=== PATIENT | female | born 1985 | race African-American/Black ===

== ENCOUNTER 2019-01-30 07:24 | Emergency (ER) | payer MEDICARE ==
[~2019-01-30] VITALS: Ht 160 cm; Wt 88.0 kg
--- OUTSIDE RECORDS SUMMARY | 2019-01-30 07:26 | XMS REPORT | Clinical Summary ---
Author Author [facility] [employer] [place] [employer] Address Unknown Phone Unavailable Care Team Providers Care Optical Engineering Manager Name Role Phone Asked, No Pcp PCP Unavailable Allergies No Known Allergies Medications End Date Status Medication Sig Dispensed Refills Start Date 09/03/2018 amoxicillin-pot Take 1 tablet 14 tablet 0 clavulanate (AUGMENTIN) by mouth 9 875-125 mg per tablet every 12 (twelve) hours for 7 days. 11/29/2018 fluconazole (DIFLUCAN) Take 1 tablet 21 tablet 0 200 MG tablet (200 mg 9 total) by mouth daily for 21 days. 01/03/2019 traMADol (ULTRAM) 50 mg Take 1 tablet 20 tablet 0 tablet (50 mg total) 9 by mouth every 6 (six) hours as needed for moderate pain or severe pain for up to 7 days. 01/20/2019 acetaminophen-codeine Take 1-2 20 tablet 0 (TYLENOL WITH CODEINE #3) tablets by 9 300-30 mg per tablet mouth every 6 (six) hours as needed for moderate pain for up to 5 days. Active Problems Not on file Encounters Care Team Description Date Type Specialty Roberto, Jw Gonzalez Jr., MD Systemic lupus erythematosus, unspecified SLE type, unspecified organ involvement status (HCC) (Primary Dx); Total body pain 01/15/2019 Emergency Emergency Medicine SmithRodriguez MD Lupus erythematosus, unspecified form (Primary Dx) 12/27/2018 Emergency Emergency Medicine 12/27/2018 Travel Jerome Hernandez DO Esophageal candidiasis (HCC) (Primary Dx) 11/08/2018 Emergency Emergency Medicine 11/08/2018 Travel Francisco Campos MD Right acute otitis media (Primary Dx) 08/27/2018 Emergency Emergency Medicine after 01/29/2018 Social History Date Tobacco Use Types Packs/Day Years Used Current Some Day Smoker Smokeless Tobacco: Never Used Drinks/Week oz/Week Comments Alcohol Use Never Alcohol Habits Answer Date Recorded How often do you have a drink containing alcohol? Never 12/27/2018 How many drinks containing alcohol do you have on Not asked a typical day when you are drinking? How often do you have six or more drinks on one Not asked occasion? Sex Assigned at Date Recorded Not on file Industry Job Start Date Occupation Not on file Not on file Not on file Travel End Travel History Travel Start No recent travel history available. Last Filed Vital Signs Reading Time Taken Comments Vital Sign 133/75 01/15/2019 3:40 AM CDT Blood Pressure 80 01/15/2019 3:40 AM CDT Pulse 36.9 C (98.5 F) 01/15/2019 3:40 AM CDT Temperature 18 01/15/2019 3:40 AM CDT Respiratory Rate 98% 01/15/2019 3:40 AM CDT Oxygen Saturation - - Inhaled Oxygen Concentration 86.2 kg (190 lb) 01/15/2019 3:40 AM CDT Weight 160 cm (5' 3") 01/15/2019 3:40 AM CDT Height 33.66 01/15/2019 3:40 AM CDT Body Mass Index Plan of Treatment Not on file Results Not on fileafter 01/29/2018 Insurance Type Payer Benefit Subscriber ID Effective Phone Address Plan / Dates Group Medicare MEDICARE MEDICARE xxxxxxxxxxx 2018-P [place], PART A AND resent [place] B Medicaid MEDICAID MEDICAID xxxxxxxxx 2018-P resent Advance Directives For more information, please contact: [phone] Patient Video Coordinator Explanation Type Date Recorded Advance Directives, Living Will and Medical Power of Marketing Sales Consultant
--- OUTSIDE RECORDS SUMMARY | 2019-01-30 07:27 | XMS REPORT ---
Author [facility] Address Unknown Phone Unavailable Care Team Providers Care Aviation Maintenance Technician Name Role Phone Unavailable Unavailable Payers Payer Name Policy Type Policy Number Effective Date Expiration Date Problems This patient has no known problems. Allergies, Adverse Reactions, Alerts Allergy Name Allergy Type Status Severity Reaction(s) Onset Date Inactive Date Treating Clinician Comments No Known Allergies DA Active U 2018-10-29 00:00:00 No Known Allergies DA Active U 2016-07-05 00:00:00 Medications This patient has no known medications. Encounters Start Date/Time End Date/Time Encounter Type Admission Type Attending [facility] Facility Care Department Encounter ID 2019-01-03 13:59:00 2019-01-03 13:59:00 Emergency E [facility] [id number] 2018-12-27 04:17:00 2018-12-27 04:17:00 Emergency E [facility] [id number] 2018-11-05 04:38:00 2018-11-05 04:38:00 Emergency E [facility] [id number] 2017-04-09 10:16:12 2017-04-09 10:16:12 Outpatient [facility] [id number] 2017-04-09 00:00:00 2017-04-09 00:00:00 Outpatient [facility] [id number] 2017-03-27 00:00:00 2017-03-27 00:00:00 Outpatient [facility] [id number] 2017-03-18 00:00:00 2017-03-18 00:00:00 Outpatient [facility] [id number] 2017-02-27 07:51:35 2017-02-27 07:51:35 Outpatient [facility] [id number] 2017-01-29 14:32:48 2017-01-29 14:32:48 Outpatient [facility] [id number] 2016-12-17 09:26:37 2016-12-17 09:26:37 Outpatient [facility] [id number] 2016-12-03 08:19:18 2016-12-03 08:19:18 Outpatient [facility] [id number] 2016-07-31 12:25:10 2016-07-31 12:25:10 Outpatient [facility] [id number] Results Test Description Test Time Test Comments Text Results Atomic Results Result Comments CBC W/AUTO DIFF 2019-01-22 08:55:00 WHITE BLOOD CELL (test code=WBC) 2.3 K/mm3 6.6-12.1 RESULTS CALLED TO WILFRIDO DUMONT BACK & CONFIRMED? LANCE NavarroLAB.KG 01/22/19 0806.Results verified by repeat analysis RED BLOOD CELL (test code=RBC) 4.23 M/mm3 3.45-5.01 HEMOGLOBIN (test code=HGB) 12.4 g/dL 10.7-13.9 HEMATOCRIT (test code=HCT) 37.8 % 32.1-42.1 MEAN CELL VOLUME (test code=MCV) 89 fL 84.1-94.8 MEAN CELL HGB (test code=MCH) 29.3 pg 27-35 MEAN CELL HGB CONCETRATION (test code=MCHC) 32.8 gm/dL 32.2-34.1 RED CELL DISTRIBUTION WIDTH (test code=RDW) 14.6 % 12.4-16.5 PLATELET COUNT (test code=PLT) 153 K/mm3 133-385 MEAN PLATELET VOLUME (test code=MPV) 10.3 fl 9.1-12.7 MANUAL DIFF REQUIRED (test code=MDIFF) YES RBC MORPHOLOGY REQUIRED (test code=RBCM) NORMAL NORMAL PLATELET MORPHOLOGY REQUIRED (test code=PLTMR) ABNORMAL NORMAL WBC [id number] 08:55:00* Test Item Value Reference Range Comments TOTAL CELLS COUNTED (test code=TCC) 100 #CELLS SEGMENTED NEUTROPHILS (test code=SEG) 64 % 56.5-79.4 BAND NEUTROPHIL (test code=BAND) 4 % 0-5 LYMPHOCYTE (test code=LYMPH) 18 % 20-40 MONOCYTE (test code=MON) 10 % 0-8 EOSINOPHIL (test code=EOS) 4 % 0-4 PLATELET MORPHOLOGY (test code=PLTMORPH) PLATELET CLUMPS NORMAL CBC W/AUTO [id number] 08:54:00* Test Item Value Reference Range Comments WHITE BLOOD CELL (test code=WBC) 2.3 K/mm3 6.6-12.1 RESULTS CALLED TO WILFRIDO DUMONT BACK & CONFIRMED? LANCE PanasasLAB.KG 01/22/19805.Results verified by repeat analysis RED BLOOD CELL (test code=RBC) 4.23 M/mm3 3.45-5.01 HEMOGLOBIN (test code=HGB) 12.4 g/dL 10.7-13.9 HEMATOCRIT (test code=HCT) 37.8 % 32.1-42.1 MEAN CELL VOLUME (test code=MCV) 89 fL 84.1-94.8 MEAN CELL HGB (test code=MCH) 29.3 pg 27-35 MEAN CELL HGB CONCETRATION (test code=MCHC) 32.8 gm/dL 32.2-34.1 RED CELL DISTRIBUTION WIDTH (test code=RDW) 14.6 % 12.4-16.5 PLATELET COUNT (test code=PLT) 153 K/mm3 133-385 MEAN PLATELET VOLUME (test code=MPV) 10.3 fl 9.1-12.7 MANUAL DIFF REQUIRED (test code=MDIFF) YES RBC MORPHOLOGY REQUIRED (test code=RBCM) NORMAL PLATELET MORPHOLOGY REQUIRED (test code=PLTMR) NORMAL WBC [id number] 08:54:00* Test Item Value Reference Range Comments SEGMENTED NEUTROPHILS (test code=SEG) % 56.5-79.4 LYMPHOCYTE (test code=LYMPH) % 20-40 CBC W/AUTO [id number] 08:54:00* Test Item Value Reference Range Comments WHITE BLOOD CELL (test code=WBC) 2.3 K/mm3 6.6-12.1 RESULTS CALLED TO WILFRIDO DUMONT BACK & CONFIRMED? LANCE PanasasLAB.KG 01/22/19805.Results verified by repeat analysis RED BLOOD CELL (test code=RBC) 4.23 M/mm3 3.45-5.01 HEMOGLOBIN (test code=HGB) 12.4 g/dL 10.7-13.9 HEMATOCRIT (test code=HCT) 37.8 % 32.1-42.1 MEAN CELL VOLUME (test code=MCV) 89 fL 84.1-94.8 MEAN CELL HGB (test code=MCH) 29.3 pg 27-35 MEAN CELL HGB CONCETRATION (test code=MCHC) 32.8 gm/dL 32.2-34.1 RED CELL DISTRIBUTION WIDTH (test code=RDW) 14.6 % 12.4-16.5 PLATELET COUNT (test code=PLT) 153 K/mm3 133-385 MEAN PLATELET VOLUME (test code=MPV) 10.3 fl 9.1-12.7 MANUAL DIFF REQUIRED (test code=MDIFF) YES RBC MORPHOLOGY REQUIRED (test code=RBCM) NORMAL PLATELET MORPHOLOGY REQUIRED (test code=PLTMR) NORMAL WBC [id number] 08:54:00* Test Item Value Reference Range Comments SEGMENTED NEUTROPHILS (test code=SEG) % 56.5-79.4 LYMPHOCYTE (test code=LYMPH) % 20-40 HCG [id number] 08:21:00* Test Item Value Reference Range Comments HCG SERUM (test code=HCG) <1 INTERPRETATION:VALUES BETWEEN 15-20 milliInternational units/mL NEED TO BERETESTED WITHIN 48 HOURS. All units for these ranges are in milliInternationalunits/mL0-1 WK AFTER CONCEPTION 0-50 1-2 WKS AFTER CONCEPTION 40-3002-3 WKS AFTER CONCEPTION 100-1,0003-4 WKS AFTER CONCEPTION 500-6,0001-2 MONTHS AFTER CONCEPTION 5,000-200,0002-3 MONTHS AFTER CONCEPTION 10,000-100,0002ND TRIMESTER 3,000-50,0003RD TRIMESTER 1,000-50,000 SPECIMENS WITH AN HCG LEVEL FROM 0-6 milliInternationalunits/mL SHOULD BE CONSIDERED NEGATIVE COMPREHENSIVE METABOLIC [id number] 08:14:00* Test Item Value Reference Range Comments SODIUM (test code=NA) 145 mEq/L 135-145 POTASSIUM (test code=K) 3.4 mEq/L 3.5-5.0 CHLORIDE (test code=CL) 110 mEq/L 100-115 CARBON DIOXIDE (test code=CO2) 23 mEq/L 22-31 ANION GAP (test code=GAP) 15.30 10-20 GLUCOSE (test code=GLU) 102 mg/dL 65-110 BLOOD UREA NITROGEN (test code=BUN) 14 mg/dL 7-18 GLOMERULAR FILTRATION RATE (test code=GFR) 93 ml/min >60 CREATININE (test code=CREAT) 0.8 mg/dL 0.5-1.0 TOTAL PROTEIN (test code=PROT) 7.7 gm/dL 6.3-8.2 ALBUMIN (test code=ALB) 2.7 gm/dL 3.4-4.8 CALCIUM (test code=CA) 8.1 mg/dL 8.4-10.2 BILIRUBIN TOTAL (test code=BILT) 0.3 mg/dL 0.2-1.0 SGOT/AST (test code=AST) 37 units/L 15-37 SGPT/ALT (test code=ALT) 9 units/L 12-78 ALKALINE PHOSPHATASE TOTAL (test code=ALKP) 130 units/L 46-116 CBC W/AUTO [id number] 08:06:00* Test Item Value Reference Range Comments WHITE BLOOD CELL (test code=WBC) 2.3 K/mm3 6.6-12.1 RESULTS CALLED TO WILFRIDO DUMONT BACK & CONFIRMED? YBY F.LAB.KG 01/22/19 0806.Results verified by repeat analysis RED BLOOD CELL (test code=RBC) 4.23 M/mm3 3.45-5.01 HEMOGLOBIN (test code=HGB) 12.4 g/dL 10.7-13.9 HEMATOCRIT (test code=HCT) 37.8 % 32.1-42.1 MEAN CELL VOLUME (test code=MCV) 89 fL 84.1-94.8 MEAN CELL HGB (test code=MCH) 29.3 pg 27-35 MEAN CELL HGB CONCETRATION (test code=MCHC) 32.8 gm/dL 32.2-34.1 RED CELL DISTRIBUTION WIDTH (test code=RDW) 14.6 % 12.4-16.5 PLATELET COUNT (test code=PLT) 153 K/mm3 133-385 MEAN PLATELET VOLUME (test code=MPV) 10.3 fl 9.1-12.7 RBC MORPHOLOGY REQUIRED (test code=RBCM) NORMAL PLATELET MORPHOLOGY REQUIRED (test code=PLTMR) NORMAL LACTIC ACID [id number] 17:10:00* Test Item Value Reference Range Comments LACTIC ACID POC (test code=LACTP) 1.13 MMOL/L 0.90-1.70 UA RFLX MICR CULT IF [id number] 16:44:00* Test Item Value Reference Range Comments UA COLOR (test code=COLU) YELLOW discript YEL/STRAW UA APPEARANCE (test code=APPU) CLEAR discript CLEAR UA GLUCOSE DIPSTICK (test code=DGLUU) NEGATIVE mg/dL NEG UA BILIRUBIN DIPSTICK (test code=BILU) NEGATIVE mg/dL NEG UA KETONE DIPSTICK (test code=KETU) NEGATIVE mg/dL NEG UA SPECIFIC GRAVITY (test code=SGU) 1.015 SG 1.005-1.030 UA BLOOD DIPSTICK (test code=JORDY) NEGATIVE mg/DL NEG UA PH DIPSTICK (test code=RICHA) 7.0 pH UNITS 5.0-7.0 UA PROTEIN DIPSTICK (test code=PROU) 1+ mg/dL NEG UA UROBILINIOGEN DIPSTICK (test code=URO) 1.0 mg/dL <2.0 UA NITRITE DIPSTICK (test code=ISHAAN) NEGATIVE SCREEN NEG UA LEUKOCYTE ESTERASE DIPSTICK (test code=LEUU) NEGATIVE Leuk/mcL NEGATIVE UA WBC (test code=WBCU) NONE SEEN #WBC/HPF 0-3 UA RBC (test code=RBCU) NONE SEEN #RBC/HPF 0-3 UA BACTERIA (test code=BACU) NONE SEEN /HPF NONE-TRACE UA SQUAMOUS CELLS (test code=SQU) NONE SEEN /HPF NONE UA CULTURE NEEDED? (test code=UACULT) NO, WBC<10 Criteria Culture CHK SOURCE OF URINE: CLEAN CATCHIndication for culture: Sev. Sepsis-no other src UA RFLX MICR CULT IF [id number] 16:37:00* Test Item Value Reference Range Comments UA COLOR (test code=COLU) YELLOW discript YEL/STRAW UA APPEARANCE (test code=APPU) CLEAR discript CLEAR UA GLUCOSE DIPSTICK (test code=DGLUU) NEGATIVE mg/dL NEG UA BILIRUBIN DIPSTICK (test code=BILU) NEGATIVE mg/dL NEG UA KETONE DIPSTICK (test code=KETU) NEGATIVE mg/dL NEG UA SPECIFIC GRAVITY (test code=SGU) 1.015 SG 1.005-1.030 UA BLOOD DIPSTICK (test code=JORDY) NEGATIVE mg/DL NEG UA PH DIPSTICK (test code=RICHA) 7.0 pH UNITS 5.0-7.0 UA PROTEIN DIPSTICK (test code=PROU) 1+ mg/dL NEG UA UROBILINIOGEN DIPSTICK (test code=URO) 1.0 mg/dL <2.0 UA NITRITE DIPSTICK (test code=ISHAAN) NEGATIVE SCREEN NEG UA LEUKOCYTE ESTERASE DIPSTICK (test code=LEUU) NEGATIVE Leuk/mcL NEGATIVE UA CULTURE NEEDED? (test code=UACULT) NO, WBC<10 Criteria Culture CHK SOURCE OF URINE: CLEAN CATCHIndication for culture: Sev. Sepsis-no other src UA RFLX MICR CULT IF [id number] 16:36:00* Test Item Value Reference Range Comments UA COLOR (test code=COLU) YELLOW discript YEL/STRAW UA APPEARANCE (test code=APPU) CLEAR discript CLEAR UA GLUCOSE DIPSTICK (test code=DGLUU) NEGATIVE mg/dL NEG UA BILIRUBIN DIPSTICK (test code=BILU) NEGATIVE mg/dL NEG UA KETONE DIPSTICK (test code=KETU) NEGATIVE mg/dL NEG UA SPECIFIC GRAVITY (test code=SGU) 1.015 SG 1.005-1.030 UA BLOOD DIPSTICK (test code=JORDY) NEGATIVE mg/DL NEG UA PH DIPSTICK (test code=RICHA) 7.0 pH UNITS 5.0-7.0 UA PROTEIN DIPSTICK (test code=PROU) 1+ mg/dL NEG UA UROBILINIOGEN DIPSTICK (test code=URO) 1.0 mg/dL <2.0 UA NITRITE DIPSTICK (test code=ISHAAN) NEGATIVE SCREEN NEG UA LEUKOCYTE ESTERASE DIPSTICK (test code=LEUU) NEGATIVE Leuk/mcL NEGATIVE UA CULTURE NEEDED? (test code=UACULT) Criteria Culture CHK SOURCE OF URINE: CLEAN CATCHIndication for culture: Sev. Sepsis-no other src CBC W/AUTO [id number] 16:19:00* Test Item Value Reference Range Comments WHITE BLOOD CELL (test code=WBC) 3.5 K/mm3 3.5-11.0 RED BLOOD CELL (test code=RBC) 4.23 M/mm3 4.70-6.10 HEMOGLOBIN (test code=HGB) 12.5 G/DL 10.4-14.9 HEMATOCRIT (test code=HCT) 37.3 % 31.5-44.1 MEAN CELL VOLUME (test code=MCV) 88.2 Fl 84.5-98.6 MEAN CELL HGB (test code=MCH) 29.6 pg 27.0-34.2 MEAN CELL HGB CONCETRATION (test code=MCHC) 33.5 G/DL 31.5-34.0 RED CELL DISTRIBUTION WIDTH (test code=RDW) 15.3 SD 11.5-14.5 PLATELET COUNT (test code=PLT) 242.0 K/mm3 150-450 MEAN PLATELET VOLUME (test code=MPV) 10.60 fL 7.0-10.5 NEUTROPHIL % (test code=NT%) 68.9 % 40-76 LYMPHOCYTE % (test code=LY%) 14.0 % 20.5-51.1 MONOCYTE % (test code=MO%) 12.8 % 1.7-9.3 EOSINOPHIL % (test code=EO%) 4.3 % 0.0-6.0 BASOPHIL % (test code=BA%) 0.0 % 0.0-2.0 NEUTROPHIL # (test code=NT#) 2.42 K/mm3 1.8-7.6 LYMPHOCYTE # (test code=LY#) 0.5 K/mm3 0.6-3.2 MONOCYTE # (test code=MO#) 0.5 K/mm3 0.3-1.1 EOSINOPHIL # (test code=EO#) 0.2 K/mm3 0.0-0.4 BASOPHIL # (test code=BA#) 0.0 K/mm3 0.0-0.1 MANUAL DIFF REQUIRED (test code=MDIFF) NO DIFF/SCN CRITERIA SLIDE REVIEW CONSISTANT WITH AUTO DIFFERENTIAL. TROPONIN I [id number] 15:59:00* Test Item Value Reference Range Comments TROPONIN I RAPID (test code=TROPIRAP) 0.00 ng/mL 0.00-0.08 - The use of serial sampling and testing protocol is a recommended practice- An elevated troponin level alone is often not sufficient for diagnosis of myocardial infarction. LACTIC ACID [id number] 15:53:00* Test Item Value Reference Range Comments LACTIC ACID POC (test code=LACTP) 2.10 MMOL/L 0.90-1.70 COMPREHENSIVE METABOLIC [id number] 15:15:00* Test Item Value Reference Range Comments SODIUM (test code=NA) 146 mmol/L 134-147 POTASSIUM (test code=K) 2.9 mmol/L 3.4-5.0 CHLORIDE (test code=CL) 113 mmol/L 100-108 CARBON DIOXIDE (test code=CO2) 25 mmol/L 21-32 ANION GAP (test code=GAP) 8.0 GAP calc 4.0-15.0 GLUCOSE (test code=GLU) 94 MG/DL 70-110 BLOOD UREA NITROGEN (test code=BUN) 12 MG/DL 7-18 GLOMERULAR FILTRATION RATE (test code=GFR) >=60 max estimate estGFR >60 CREATININE (test code=CREAT) 0.9 MG/DL 0.6-1.0 TOTAL PROTEIN (test code=PROT) 7.9 G/DL 6.4-8.2 ALBUMIN (test code=ALB) 3.0 G/DL 3.4-5.0 GLOBULIN (test code=GLOB) 4.9 GM/dL ALBUMIN/GLOBULIN RATIO (test code=A/G) 0.6 RATIO 1.2-2.2 CALCIUM (test code=CA) 8.2 MG/DL 8.5-10.1 BILIRUBIN TOTAL (test code=BILT) 0.20 MG/DL 0.2-1.2 SGOT/AST (test code=AST) 27 Unit/L 15-37 SGPT/ALT (test code=ALT) 18 Unit/L 12-78 ALKALINE PHOSPHATASE TOTAL (test code=ALKP) 103 Unit/L 45-117 CREATINE KINASE (CK)2019-01-09 15:15:00* Test Item Value Reference Range Comments CREATINE KINASE (CK) (test code=CK) 64 Unit/L 26-192 HCG [id number] 15:06:00* Test Item Value Reference Range Comments HCG POC (test code=HCGPOC) <5 IU/L <5.0 <5.0 IU/L NEGATIVE5.0 - 25.0 IU/L INDETERMINATE>25.0 POSITIVE Detection of low levels of hCG does not rule out .Because hCG values double approximately every 48 hours in anormal , patients with low levels of hCG should beresampled and retested after 48 hours CBC W/AUTO [id number] 14:37:00* Test Item Value Reference Range Comments WHITE BLOOD CELL (test code=WBC) 3.5 K/mm3 3.5-11.0 RED BLOOD CELL (test code=RBC) 4.23 M/mm3 4.70-6.10 HEMOGLOBIN (test code=HGB) 12.5 G/DL 10.4-14.9 HEMATOCRIT (test code=HCT) 37.3 % 31.5-44.1 MEAN CELL VOLUME (test code=MCV) 88.2 Fl 84.5-98.6 MEAN CELL HGB (test code=MCH) 29.6 pg 27.0-34.2 MEAN CELL HGB CONCETRATION (test code=MCHC) 33.5 G/DL 31.5-34.0 RED CELL DISTRIBUTION WIDTH (test code=RDW) 15.3 SD 11.5-14.5 PLATELET COUNT (test code=PLT) 242.0 K/mm3 150-450 MEAN PLATELET VOLUME (test code=MPV) 10.60 fL 7.0-10.5 NEUTROPHIL % (test code=NT%) 68.9 % 40-76 LYMPHOCYTE % (test code=LY%) 14.0 % 20.5-51.1 MONOCYTE % (test code=MO%) 12.8 % 1.7-9.3 EOSINOPHIL % (test code=EO%) 4.3 % 0.0-6.0 BASOPHIL % (test code=BA%) 0.0 % 0.0-2.0 NEUTROPHIL # (test code=NT#) 2.42 K/mm3 1.8-7.6 LYMPHOCYTE # (test code=LY#) 0.5 K/mm3 0.6-3.2 MONOCYTE # (test code=MO#) 0.5 K/mm3 0.3-1.1 EOSINOPHIL # (test code=EO#) 0.2 K/mm3 0.0-0.4 BASOPHIL # (test code=BA#) 0.0 K/mm3 0.0-0.1 MANUAL DIFF REQUIRED (test code=MDIFF) DIFF/SCN CRITERIA - XR CHEST 2 [id number] 14:36:00 Name: YULI VILLANUEVA I [facility] : 1985 Age/S: 33 / F [address] Unit #: [id number] Loc: [place] [address] Phys: Bernardino Denis MD Acct: [id number] Dis Date: Status: REG ER PHONE #: [phone] Exam Date: 01/09/2019 1405 FAX #: Reason: Suspected Sepsis EXAMS: CPT: [id number] XR CHEST 2 V 09999 Fluoro Time: DAP (Gy m2): Air Kerma (mGy): PA AND LATERAL CHEST: CLINICAL INFORMATION: Suspected Sepsis COMPARISONS: October 29, 2018 FINDINGS: Lines and tubes: None Lungs and pleura: The lungs are well-expanded. No airspace consolidation is seen. The costophrenic angles are sharp. Heart and mediastinum: The cardiomediastinal silhouette and pulmonary vasculature are within normal limits. Bones and soft tissues: Unremarkable IMPRESSION: No acute abnormality LOCATION: A1 at 1436 Reported and signed by: Vitaly Ortiz M.D. CC: Bernardino Denis MD; Kia Arguello [employer]; Violet Acosta MD PAGE 1 Signed Report Name: YULI VILLANUEVA [place] : 1985 Age/S: 33 / F [address] Unit #: [id number] Loc: [place] [address] Phys: Bernardino Denis MD Acct: [id number] Dis Date: Status: REG ER PHONE #: [phone] Exam Date: 01/09/2019 1405 FAX #: Reason: Suspected Sepsis EXAMS: CPT: [id number] XR CHEST 2 V 56748 Fluoro Time: DAP (Gy m2): Air Kerma (mGy): < Continued> Technologist: Josiah Gomes RT(R)(MR); Radha Seo RT(R) Trndcb Date/Time: 01/09/2019 (1436) [email or web address] Orig Print D/T: S: 01/09/2019 (8069) PAGE 2 Signed Report UA RFLX MICR CULT IF [id number] 05:44:00* Test Item Value Reference Range Comments UA COLOR (test code=COLU) YELLOW discript YEL/STRAW UA APPEARANCE (test code=APPU) CLEAR discript CLEAR UA GLUCOSE DIPSTICK (test code=DGLUU) NEGATIVE mg/dL NEG UA BILIRUBIN DIPSTICK (test code=BILU) NEGATIVE mg/dL NEG UA KETONE DIPSTICK (test code=KETU) NEGATIVE mg/dL NEG UA SPECIFIC GRAVITY (test code=SGU) 1.010 SG 1.005-1.030 UA BLOOD DIPSTICK (test code=JORDY) 1+ mg/DL NEG UA PH DIPSTICK (test code=RICHA) 6.5 pH UNITS 5.0-7.0 UA PROTEIN DIPSTICK (test code=PROU) 1+ mg/dL NEG UA UROBILINIOGEN DIPSTICK (test code=URO) 0.2 mg/dL <2.0 UA NITRITE DIPSTICK (test code=ISHAAN) NEGATIVE SCREEN NEG UA LEUKOCYTE ESTERASE DIPSTICK (test code=LEUU) 1+ Leuk/mcL NEGATIVE UA WBC (test code=WBCU) 5-10 #WBC/HPF 0-3 UA RBC (test code=RBCU) 3-5 #RBC/HPF 0-3 UA BACTERIA (test code=BACU) TRACE /HPF NONE-TRACE UA SQUAMOUS CELLS (test code=SQU) 1+ /HPF NONE UA TRICHOMONAS (test code=TRICHU) 1+ /HPF NONE SEEN UA CULTURE NEEDED? (test code=UACULT) NO, WBC<10 Criteria Culture CHK SOURCE OF URINE: CLEAN CATCHIndication for culture: Dysuria/Frequency COMPREHENSIVE METABOLIC [id number] 05:28:00* Test Item Value Reference Range Comments SODIUM (test code=NA) 142 mmol/L 134-147 POTASSIUM (test code=K) 2.9 mmol/L 3.4-5.0 CHLORIDE (test code=CL) 113 mmol/L 100-108 CARBON DIOXIDE (test code=CO2) 23 mmol/L 21-32 ANION GAP (test code=GAP) 6.0 GAP calc 4.0-15.0 GLUCOSE (test code=GLU) 64 MG/DL 70-110 BLOOD UREA NITROGEN (test code=BUN) 12 MG/DL 7-18 GLOMERULAR FILTRATION RATE (test code=GFR) >=60 max estimate estGFR >60 CREATININE (test code=CREAT) 0.8 MG/DL 0.6-1.0 TOTAL PROTEIN (test code=PROT) 9.2 G/DL 6.4-8.2 ALBUMIN (test code=ALB) 3.6 G/DL 3.4-5.0 GLOBULIN (test code=GLOB) 5.6 GM/dL ALBUMIN/GLOBULIN RATIO (test code=A/G) 0.6 RATIO 1.2-2.2 CALCIUM (test code=CA) 8.6 MG/DL 8.5-10.1 BILIRUBIN TOTAL (test code=BILT) 0.20 MG/DL 0.2-1.2 SGOT/AST (test code=AST) 35 Unit/L 15-37 SGPT/ALT (test code=ALT) 24 Unit/L 12-78 ALKALINE PHOSPHATASE TOTAL (test code=ALKP) 140 Unit/L 45-117 TROPONIN I [id number] 05:24:00* Test Item Value Reference Range Comments TROPONIN I RAPID (test code=TROPIRAP) 0.00 ng/mL 0.00-0.08 - The use of serial sampling and testing protocol is a recommended practice- An elevated troponin level alone is often not sufficient for diagnosis of myocardial infarction. LACTIC [id number] 05:23:00* Test Item Value Reference Range Comments LACTIC ACID (test code=LACT) 0.7 mmol/L 0.4-2.0 LACTIC ACID [id number] 05:22:00* Test Item Value Reference Range Comments LACTIC ACID POC (test code=LACTP) 0.53 MMOL/L 0.90-1.70 CHEMISTRY 8 [id number] 05:21:00* Test Item Value Reference Range Comments ISTAT-SODIUM (test code=NAP) mmol/L 135-146 ISTAT-POTASSIUM (test code=KP) mmol/L 3.5-4.9 ISTAT-CHLORIDE (test code=CLP) mmol/L 98-109 ISTAT-CARBON DIOXIDE (test code=ISTAT-CO2) mmol/L 24-29 ISTAT CALCIUM IONIZED (test code=ISTAT-RICH) mmol/L 1.12-1.32 ISTAT-GLUCOSE (test code=GLUP) mg/dL 70-105 ISTAT-BUN (test code=BUNP) mg/dL 8-26 BEDSIDE CREATININE (test code=CREATBED) mg/dL 0.6-1.3 GLOMERULAR FILTRATION RATE POC (test code=GFRBED) 106 64-149 CHEMISTRY 8 [id number] 05:21:00* Test Item Value Reference Range Comments ISTAT-SODIUM (test code=NAP) 145 mmol/L 135-146 ISTAT-POTASSIUM (test code=KP) 2.9 mmol/L 3.5-4.9 ISTAT-CHLORIDE (test code=CLP) 109 mmol/L 98-109 ISTAT-CARBON DIOXIDE (test code=ISTAT-CO2) 23 mmol/L 24-29 ISTAT CALCIUM IONIZED (test code=ISTAT-RICH) 1.27 mmol/L 1.12-1.32 ISTAT-GLUCOSE (test code=GLUP) 67 mg/dL 70-105 ISTAT-BUN (test code=BUNP) 12 mg/dL 8-26 BEDSIDE CREATININE (test code=CREATBED) 0.8 mg/dL 0.6-1.3 GLOMERULAR FILTRATION RATE POC (test code=GFRBED) 106 64-149 UA RFLX MICR CULT IF [id number] 05:13:00* Test Item Value Reference Range Comments UA COLOR (test code=COLU) YELLOW discript YEL/STRAW UA APPEARANCE (test code=APPU) CLEAR discript CLEAR UA GLUCOSE DIPSTICK (test code=DGLUU) NEGATIVE mg/dL NEG UA BILIRUBIN DIPSTICK (test code=BILU) NEGATIVE mg/dL NEG UA KETONE DIPSTICK (test code=KETU) NEGATIVE mg/dL NEG UA SPECIFIC GRAVITY (test code=SGU) 1.010 SG 1.005-1.030 UA BLOOD DIPSTICK (test code=JORDY) 1+ mg/DL NEG UA PH DIPSTICK (test code=RICHA) 6.5 pH UNITS 5.0-7.0 UA PROTEIN DIPSTICK (test code=PROU) 1+ mg/dL NEG UA UROBILINIOGEN DIPSTICK (test code=URO) 0.2 mg/dL <2.0 UA NITRITE DIPSTICK (test code=ISHAAN) NEGATIVE SCREEN NEG UA LEUKOCYTE ESTERASE DIPSTICK (test code=LEUU) 1+ Leuk/mcL NEGATIVE UA CULTURE NEEDED? (test code=UACULT) Criteria Culture CHK SOURCE OF URINE: CLEAN CATCHIndication for culture: Dysuria/FrequencyCBC W/AUTO [id number] 05:08:00* Test Item Value Reference Range Comments WHITE BLOOD CELL (test code=WBC) 2.8 K/mm3 3.5-11.0 RED BLOOD CELL (test code=RBC) 4.80 M/mm3 4.70-6.10 HEMOGLOBIN (test code=HGB) 13.8 G/DL 10.4-14.9 HEMATOCRIT (test code=HCT) 41.5 % 31.5-44.1 MEAN CELL VOLUME (test code=MCV) 86.5 Fl 84.5-98.6 MEAN CELL HGB (test code=MCH) 28.8 pg 27.0-34.2 MEAN CELL HGB CONCETRATION (test code=MCHC) 33.3 G/DL 31.5-34.0 RED CELL DISTRIBUTION WIDTH (test code=RDW) 15.3 SD 11.5-14.5 PLATELET COUNT (test code=PLT) 184.0 K/mm3 150-450 MEAN PLATELET VOLUME (test code=MPV) 10.60 fL 7.0-10.5 NEUTROPHIL % (test code=NT%) 64.4 % 40-76 LYMPHOCYTE % (test code=LY%) 18.2 % 20.5-51.1 MONOCYTE % (test code=MO%) 10.5 % 1.7-9.3 EOSINOPHIL % (test code=EO%) 6.5 % 0.0-6.0 BASOPHIL % (test code=BA%) 0.4 % 0.0-2.0 NEUTROPHIL # (test code=NT#) 1.77 K/mm3 1.8-7.6 LYMPHOCYTE # (test code=LY#) 0.5 K/mm3 0.6-3.2 MONOCYTE # (test code=MO#) 0.3 K/mm3 0.3-1.1 EOSINOPHIL # (test code=EO#) 0.2 K/mm3 0.0-0.4 BASOPHIL # (test code=BA#) 0.0 K/mm3 0.0-0.1 MANUAL DIFF REQUIRED (test code=MDIFF) NO DIFF/SCN CRITERIA - XR CHEST 1 [id number] 09:22:00 Name: YULI VILLANUEVA I [facility] : 1985 Age/S: 33 / F [id number] [address] Unit #: [id number] Loc: [place] [address] Phys: Barrie Gama MD Acct: [id number] Dis Date: Status: REG ER PHONE #: [phone] Exam Date: 10/29/2018919 FAX #: Reason: chest pain EXAMS: CPT: [id number] XR CHEST 1 V 27076 Fluoro Time: DAP (Gy m2): Air Kerma (mGy): EXAMINATION: - XR CHEST 1 V. LOCATION: S17. HISTORY: chest pain, cough. COMPARISON: Chest x-ray 07/05/2016. FINDINGS: Examination is limited due to portable technique, patient body habitus and low lung volumes. Cardiac silhouette/Mediastinal contour: Within normal limits. Lungs: No focal consolidation. No large pleural effusion. Osseous Structures: No acute osseous abnormalities. IMPRESSION: No focal consolidation. at 921 Reported and signed by: Ly Fernandez M.D. CC: Barrie Gama MD; Violet Acosta MD PAGE 1 Signed Report Name: YULI VILLANUEVA I [facility] : 1985 Age/S: 33 / F [id number] [address] [place] Unit #: [id number] Loc: [place] [address] Phys: Barrie Gama MD Acct: [id number] Dis Date: Status: REG ER PHONE #: [phone] Exam Date: 10/29/2018919 FAX #: Reason: chest pain EXAMS: CPT: [id number] XR CHEST 1 V 21695 Fluoro Time: DAP (Gy m2): Air Kerma (mGy): <Continued> Technologist: RT Mo(R) Trnscb Date/Time: 10/29/2018 (921) [email or web address] Orig Print D/T: S: 10/29/2018 (924) PAGE 2 Signed Report CREATINE KINASE (CK)2018-10-29 09:18:00* Test Item Value Reference Range Comments CREATINE KINASE (CK) (test code=CK) 86 Unit/L 26-192 CHEMISTRY 8 [id number] 09:12:00* Test Item Value Reference Range Comments ISTAT-SODIUM (test code=NAP) mmol/L 135-146 ISTAT-POTASSIUM (test code=KP) mmol/L 3.5-4.9 ISTAT-CHLORIDE (test code=CLP) mmol/L 98-109 ISTAT-CARBON DIOXIDE (test code=ISTAT-CO2) mmol/L 24-29 ISTAT CALCIUM IONIZED (test code=ISTAT-RICH) mmol/L 1.12-1.32 ISTAT-GLUCOSE (test code=GLUP) mg/dL 70-105 ISTAT-BUN (test code=BUNP) mg/dL 8-26 BEDSIDE CREATININE (test code=CREATBED) mg/dL 0.6-1.3 GLOMERULAR FILTRATION RATE POC (test code=GFRBED) 148 64-149 CHEMISTRY 8 [id number] 09:12:00* Test Item Value Reference Range Comments ISTAT-SODIUM (test code=NAP) 144 mmol/L 135-146 ISTAT-POTASSIUM (test code=KP) 3.3 mmol/L 3.5-4.9 ISTAT-CHLORIDE (test code=CLP) 108 mmol/L 98-109 ISTAT-CARBON DIOXIDE (test code=ISTAT-CO2) 23 mmol/L 24-29 ISTAT CALCIUM IONIZED (test code=ISTAT-RICH) 1.16 mmol/L 1.12-1.32 ISTAT-GLUCOSE (test code=GLUP) 82 mg/dL 70-105 ISTAT-BUN (test code=BUNP) 19 mg/dL 8-26 BEDSIDE CREATININE (test code=CREATBED) 0.6 mg/dL 0.6-1.3 GLOMERULAR FILTRATION RATE POC (test code=GFRBED) 148 64-149 CBC W/O [id number] 09:06:00* Test Item Value Reference Range Comments WHITE BLOOD CELL (test code=WBC) 3.6 K/mm3 3.5-11.0 RED BLOOD CELL (test code=RBC) 4.60 M/mm3 4.70-6.10 HEMOGLOBIN (test code=HGB) 13.1 G/DL 10.4-14.9 HEMATOCRIT (test code=HCT) 40.0 % 31.5-44.1 MEAN CELL VOLUME (test code=MCV) 87.0 Fl 84.5-98.6 MEAN CELL HGB (test code=MCH) 28.5 pg 27.0-34.2 MEAN CELL HGB CONCETRATION (test code=MCHC) 32.8 G/DL 31.5-34.0 RED CELL DISTRIBUTION WIDTH (test code=RDW) 14.2 SD 11.5-14.5 PLATELET COUNT (test code=PLT) 165.0 K/mm3 150-450 MEAN PLATELET VOLUME (test code=MPV) 11.30 fL 7.0-10.5
== END 2019-01-30 09:26 | disposition home or self-care (01) ==
LOC: ER 07:24
DX: L40.0 Psoriasis vulgaris (principal); L40.50 Arthropathic psoriasis, unspecified
CPT/HCPCS: 99282